=== PATIENT | female | born 1995 | race Asian ===

== ENCOUNTER 2017-04-17 17:05 | Emergency (ER) | payer OTHER ==
[~2017-04-17] VITALS: Ht 167.6 cm; Wt 53.8 kg
[2017-04-17 17:21] VITALS: TEMP 37; Ht 167.6 cm; Wt 53.8 kg
[2017-04-17 20:21] VITALS: O2SAT 100
[2017-04-17] MEDS ORDERED: SODIUM CHLORIDE 0.9% 1000ML 1,000 ML IV STA (20:24)
--- NOTE | 2017-04-17 20:29 | EMERGENCY ROOM VISIT NOTE ---
History Report prepared by Tona: Rodriguez Kaiser Under the Supervision of: Dr. Marlon Irwin D.O. First contact with patient: 20:17 Chief Complaint: PALPITATIONS Stated Complaint: HEART PALPITATIONS, SWOLLEN LYMPH NODES, NAUSEA Nursing Triage Summary: pt reports intermittent periods of palpatations today swollen lymph nodes right side of neck nausea abd pain History of Present Illness The patient is a 22 year old female who presents to the Emergency Room with complaints of intermittent heart palpitations today. She says that she feels that her heart is "going fast", and she has a "weird" feeling towards her sternum. The patient states that she has also had some intermittent tingling in her legs for "quite some time". She says that in high school, she had an episode left arm pain and chest pain, but did not get checked out for it. The patient says that she is not currently having the palpitations. She denies any urinary symptoms. The patient also notes no recent long travels or excessive caffeine use. She notes no surgical history or history of thyroid problems. Source of History: patient Onset: Today Position: other (heart) Symptom Intensity: going fast Quality: other (palpitations) Timing: intermittent Associated Symptoms: No urinary symptoms Note: Associated symptoms: Intermittent tingling in legs for quite some time. Review of Systems See HPI for pertinent positives & negatives. A total of 10 systems reviewed and were otherwise negative. Past Medical & Surgical Medical Problems: (1) MDD (major depressive disorder) Family History No pertinent family history Social History Smoking Status: Never Smoker Smokeless Tobacco Use: No Alcohol Use: occasionally Drug Use: none Marital Status: single Housing Status: lives with roommate Occupation Status: [employer] student Current/Historical Medications Scheduled Venlafaxine Hcl (Effexor Extended Rel), 150 MG PO HS Allergies Coded Allergies: Bacitracin (Verified Allergy, Intermediate, RASH, 04/17/17) Neomycin (Verified Allergy, Intermediate, RASH, 04/17/17) Polymyxin B (Verified Allergy, Intermediate, RASH, 04/17/17) Physical Exam Vital Signs Date Time Temp Pulse Resp B/P (MAP) Pulse Ox O2 Delivery O2 Flow Rate FiO2 04/17/17 22:38 80 118/92 98 04/17/17 20:28 78 04/17/17 20:21 100 Room Air 2/15/18 20:20 91 142/85 100 Room Air 04/17/17 17:21 37.0 92 20 128/93 99 Room Air Physical Exam GENERAL: Patient is awake, alert, and in no acute distress. Patient is resting comfortably and showing no signs of anxiety EYES: The conjunctivae are clear. The pupils are round and reactive. EARS, NOSE, MOUTH AND THROAT: The nose is without any evidence of any deformity. Mucous membranes are moist tongue is midline NECK: The neck is nontender and supple. RESPIRATORY: Normal respiratory effort is noted there is no evidence of wheezing rhonchi or rales CARDIOVASCULAR: Regular rate and rhythm noted there no murmurs rubs or gallops normal S1 normal S2 GASTROINTESTINAL: The abdomen is soft. Bowel sounds are present in all quadrants. Abdomen is nontender MUSCULOSKELETAL/EXTREMITIES: There is no evidence of gross deformity full range of motion is noted in the hips and shoulders SKIN: There is no obvious evidence of any rash. There are no petechiae, pallor or cyanosis noted. NEUROLOGIC: Patient is awake alert and oriented x3 strength is symmetric patellar reflexes are 2+ bilaterally Medical Decision & Procedures ER Provider Diagnostic Interpretation: X-ray results as stated below per interpretation by me and the radiologist. CHEST ONE VIEW PORTABLE HISTORY: EVALUATE RESPIRATORY DISTRESS.DYSPNEA COMPARISON: None. FINDINGS: The lungs are clear. Cardiac silhouette is normal in size. No pleural effusions. No pneumothorax. IMPRESSION: No acute process. Electronically signed by: Gómez Doan M.D. 04/17/2017 8:53 PM Dictated Date/Time: 04/17/2017 8:51 PM Laboratory Results 04/17/17 20:28 Red Blood Count 4.16, Mean Corpuscular Volume 87.3, Mean Corpuscular Hemoglobin 29.6, Mean Corpuscular Hemoglobin Concent 33.9, Mean Platelet Volume 10.6, Neutrophils (%) (Auto) 70.0, Lymphocytes (%) (Auto) 22.7, Monocytes (%) (Auto) 4.9, Eosinophils (%) (Auto) 1.9, Basophils (%) (Auto) 0.3, Neutrophils # (Auto) 8.70, Lymphocytes # (Auto) 2.82, Monocytes # (Auto) 0.61, Eosinophils # (Auto) 0.24, Basophils # (Auto) 0.04 2/15/18 20:28 Test 04/17/17 20:28 White Blood Count 12.43 K/uL (4.8-10.8) Red Blood Count 4.16 M/uL (4.2-5.4) Hemoglobin 12.3 g/dL (12.0-16.0) Hematocrit 36.3 % (37-47) Mean Corpuscular Volume 87.3 fL (80-100) Mean Corpuscular Hemoglobin 29.6 pg (25-34) Mean Corpuscular Hemoglobin Concent 33.9 g/dl (32-36) Platelet Count 210 K/uL (130-400) Mean Platelet Volume 10.6 fL (7.4-10.4) Neutrophils (%) (Auto) 70.0 % Lymphocytes (%) (Auto) 22.7 % Monocytes (%) (Auto) 4.9 % Eosinophils (%) (Auto) 1.9 % Basophils (%) (Auto) 0.3 % Neutrophils # (Auto) 8.70 K/uL (1.4-6.5) Lymphocytes # (Auto) 2.82 K/uL (1.2-3.4) Monocytes # (Auto) 0.61 K/uL (0.11-0.59) Eosinophils # (Auto) 0.24 K/uL (0-0.5) Basophils # (Auto) 0.04 K/uL (0-0.2) RDW Standard Deviation 45.6 fL (36.4-46.3) RDW Coefficient of Variation 14.2 % (11.5-14.5) Immature Granulocyte % (Auto) 0.2 % Immature Granulocyte # (Auto) 0.02 K/uL (0.00-0.02) Anion Gap 6.0 mmol/L (3-11) Est Creatinine Clear Calc Drug Dose 111.9 ml/min Estimated GFR () 144.6 Estimated GFR (Non- 124.8 BUN/Creatinine Ratio 20.5 (10-20) Calcium Level 8.5 mg/dl (8.5-10.1) Magnesium Level 2.3 mg/dl (1.8-2.4) Total Bilirubin 0.3 mg/dl (0.2-1) Aspartate Amino Transf (AST/SGOT) 9 U/L (15-37) Alanine Aminotransferase (ALT/SGPT) 18 U/L (12-78) Alkaline Phosphatase 52 U/L (45-117) Troponin I < 0.015 ng/ml (0-0.045) Total Protein 7.3 gm/dl (6.4-8.2) Albumin 3.9 gm/dl (3.4-5.0) Globulin 3.4 gm/dl (2.5-4.0) Albumin/Globulin Ratio 1.1 (0.9-2) Thyroid Stimulating Hormone (TSH) 2.510 uIu/ml (0.300-4.500) Free Thyroxine 0.81 ng/dl (0.80-1.60) Human Chorionic Gonadotropin, Qual NEG (NEG) Laboratory results per my review. Medications Administered Medications (Trade) Dose Ordered Sig/Gracia Route Start Time Stop Time Status Last Admin Dose Admin Sodium Chloride 1,000 ml @ 999 mls/hr Q1H1M STAT IV 04/17/17 20:24 04/17/17 21:24 DC 04/17/17 20:24 999 MLS/HR ECG Per My Interpretation Indication: palpitations Rate (beats per minute): 84 Rhythm: normal sinus Findings: no ectopy, other (no acute ST segment abnormalities) Comparison ECG Date: no prior available ED Course 2019: The patient was evaluated in room B10. A complete history and physical examination were performed. 2023: Ordered NSS 1000 ml @ 999 mls/hr IV. 2206: Upon reevaluation, the patient is resting. I discussed the results and treatment plan with her. She verbalized agreement of the treatment plan. She was discharged home. Medical Decision Differential diagnosis: Etiologies such as premature contractions, electrolyte abnormality, cardiac dysrhythmia, thyroid dysfunction, pulmonary embolism, infection, gastrointestinal, as well as others were entertained. Nursing notes reviewed. The patient is a 22-year-old female who presented to the emergency department for an evaluation of palpitations. The patient was not found to have any dysrhythmia while in the emergency department. She was treated with IV fluids in the emergency department. I discussed patient's laboratory and radiographic studies with her. She was encouraged to continue all medications as prescribed and follow-up with [facility]. Also recommended that she avoid any strenuous activity and return to the emergency department immediately if symptoms change worsening the need arises. I recommended that she discussed possibility that she may require further study such as an echocardiogram or a Holter monitor to further evaluate cause of her symptoms. Medication Reconcilliation Current Medication List: was personally reviewed by me Blood Pressure Screening Patient's blood pressure: Normal blood pressure Impression Primary Impression: Palpitations Scribe Attestation The scribe's documentation has been prepared under my direction and personally reviewed by me in its entirety. I confirm that the note above accurately reflects all work, treatment, procedures, and medical decision making performed by me. Departure Information Dispostion Home / Self-Care Referrals No Doctor, Assigned (PCP) [facility] Patient Instructions Heart Palpitations, My [facility] Additional Instructions Rest and avoid any strenuous activity. Drink plenty clear liquids. Continue all medications as prescribed. Avoid any caffeinated beverages. Call [facility] in the morning to schedule a follow-up appointment. He may require further studies such as an echocardiogram and Holter monitor to further evaluate the cause of your palpitations. Return to the emergency department immediately if symptoms change or worsen the need arises.
[2017-04-17 20:46] LABS: BASO % 0.3 %; BASO ABS # 0.04 K/uL (0-0.2); EOS % 1.9 %; EOS ABS # 0.24 K/uL (0-0.5); HEMATOCRIT 36.3 % (37-47); HEMOGLOBIN 12.3 g/dL (12.0-16.0); IG# 0.02 K/uL (0.00-0.02); LYMPH % 22.7 %; LYMPH ABS # 2.82 K/uL (1.2-3.4); MEAN CELL VOLUME 87.3 fL (80-100); MEAN CORPUSCULAR HEMOGLOBIN 29.6 pg (25-34); MEAN CORPUSCULAR HGB CONC 33.9 g/dl (32-36); MEAN PLATELET VOLUME 10.6 fL (7.4-10.4); MONO % 4.9 %; MONO ABS # 0.61 K/uL (0.11-0.59); PLATELET COUNT 210 K/uL (130-400); RED CELL DISTRIBUTION WIDTH CV 14.2 % (11.5-14.5); RED CELL DISTRIBUTION WIDTH SD 45.6 fL (36.4-46.3); WHITE BLOOD COUNT 12.43 K/uL (4.8-10.8)
--- NOTE | 2017-04-17 20:54 | DIAGNOSTIC IMAGING REPORT ---
CHEST ONE VIEW PORTABLE HISTORY: EVALUATE RESPIRATORY DISTRESS.DYSPNEA COMPARISON: None. FINDINGS: The lungs are clear. Cardiac silhouette is normal in size. No pleural effusions. No pneumothorax. IMPRESSION: No acute process. Electronically signed by: Gómez Doan M.D. 04/17/2017 8:53 PM Dictated Date/Time: 04/17/2017 8:51 PM
[2017-04-17 21:06] LABS: ALBUMIN 3.9 gm/dl (3.4-5.0); ALT/SGPT 18 U/L (12-78); AST/SGOT 9 U/L (15-37); BLOOD UREA NITROGEN 14 mg/dl (7-18); CALCIUM 8.5 mg/dl (8.5-10.1); CARBON DIOXIDE 27 mmol/L (21-32); CREATININE 0.67 mg/dl (0.60-1.20); GLUCOSE 90 mg/dl (70-99); POTASSIUM 3.5 mmol/L (3.5-5.1); SODIUM 136 mmol/L (136-145)
[2017-04-17 21:17] LABS: ALKALINE PHOSPHATASE 52 U/L (45-117); TOTAL PROTEIN 7.3 gm/dl (6.4-8.2)
[2017-04-17] MEDS ORDERED: VENL150C56 PO (21:21)
[2017-04-17 22:38] VITALS: BP 118/92; PULSE 80; O2SAT 98
== END 2017-04-17 22:39 | disposition home or self-care (01) ==
LOC: C.EDB 17:07
DX: R00.2 Palpitations (principal); F32.9 Major depressive disorder, single episode, unspecified; Z79.899 Other long term (current) drug therapy; Z88.8 Allergy status to other drugs, medicaments and biological substances

== ENCOUNTER 2017-05-18 12:55 | Emergency (ER) | payer OTHER ==
[~2017-05-18] VITALS: Ht 167.6 cm; Wt 52.4 kg
[~2017-05-18 12:55] MED LIST: VENL150C56 PO
[2017-05-18 12:58] VITALS: Ht 167.6 cm; Wt 52.4 kg
[2017-05-18] MEDS ORDERED: SODIUM CHLORIDE 0.9% 1000ML 2,000 ML IV STA (13:07)
--- NOTE | 2017-05-18 13:13 | EMERGENCY ROOM VISIT NOTE ---
History Report prepared by Tona: Adam Reid Under the Supervision of: Dr. Ozzy Ruth M.D. First contact with patient: 13:01 Chief Complaint: GI ASSESSMENT Stated Complaint: BLACK STOOL,NAUSEA,VOMITING,BLOODY STOOL,CONSTIPAT Nursing Triage Summary: pt reports black stool started a few days ago yesterday was bright red stools. has n./v and mid abd pain History of Present Illness The patient is a 22 year old female who presents to the Emergency Room with complaints of intermittent melena and hematochezia that began 2 days ago. Patient adds that she vomited in her mouth this morning. She denies looking at the vomit. Patient adds that she has shortness of breath and weakness. Patient denies a family history of similar symptoms. Patient states that she did not call her doctor about the symptoms because their office is closed. She denies fevers, chills, diarrhea, coughs, and congestion. She adds that she has a chronic history of intermittent diarrhea. Patient adds that she takes Venlafaxine for her PTSD. Patient denies taking blood thinners, using drugs, smoking, and drinking alcohol. Patient denies using ibuprofen. Source of History: patient Onset: 2 days ago Position: other (Rectal) Timing: intermittent Modifying Factors (Relieving): other (None) Associated Symptoms: + vomiting, No fevers, No chills, No cough, No diarrhea Note: She denies congestion. Review of Systems See HPI for pertinent positives and negatives. A total of ten systems were reviewed and were otherwise negative. Past Medical & Surgical Medical Problems: (1) MDD (major depressive disorder) Family History No pertinent family history Social History Smoking Status: Never Smoker Alcohol Use: occasionally Drug Use: none Marital Status: single Housing Status: lives with roommate Occupation Status: [employer] student Current/Historical Medications Scheduled Omeprazole (Prilosec), 40 MG PO BID Venlafaxine Hcl (Effexor Extended Rel), 150 MG PO HS Allergies Coded Allergies: Bacitracin (Verified Allergy, Intermediate, RASH, 05/18/17) Neomycin (Verified Allergy, Intermediate, RASH, 05/18/17) Polymyxin B (Verified Allergy, Intermediate, RASH, 05/18/17) Physical Exam Vital Signs Date Time Temp Pulse Resp B/P (MAP) Pulse Ox O2 Delivery O2 Flow Rate FiO2 05/18/17 15:42 36.8 72 18 110/77 100 05/18/17 15:40 72 18 110/77 100 Room Air 05/18/17 14:45 78 18 112/80 100 Room Air 05/18/17 12:58 36.8 114 18 126/84 96 Room Air Physical Exam GENERAL: Awake, alert, well-appearing, in no distress HENT: Normocephalic, atraumatic. Oropharynx unremarkable. EYES: Normal conjunctiva. Sclera non-icteric. NECK: Supple. No nuchal rigidity. FROM. No JVD. RESPIRATORY: Clear to auscultation. CARDIAC: Regular rate, normal rhythm. Extremities warm and well perfused. Pulses equal. ABDOMEN: Soft, non-distended. No tenderness to palpation. No rebound or guarding. No masses. RECTAL: Scant brown stool. No melena or blood. Guaiac negative. MUSCULOSKELETAL: Chest examination reveals no tenderness. The back is symmetrical on inspection without obvious abnormality. There is no CVA tenderness to palpation. No joint edema. LOWER EXTREMITIES: Calves are equal size bilaterally and non-tender. No edema. No discoloration. NEURO: Normal sensorium. No sensory or motor deficits noted. SKIN: No rash or jaundice noted. Medical Decision & Procedures Laboratory Results 05/18/17 13:15 Red Blood Count 4.66, Mean Corpuscular Volume 87.1, Mean Corpuscular Hemoglobin 29.2, Mean Corpuscular Hemoglobin Concent 33.5, Mean Platelet Volume 11.1, Neutrophils (%) (Auto) 51.8, Lymphocytes (%) (Auto) 38.6, Monocytes (%) (Auto) 5.6, Eosinophils (%) (Auto) 3.0, Basophils (%) (Auto) 1.0, Neutrophils # (Auto) 2.61, Lymphocytes # (Auto) 1.94, Monocytes # (Auto) 0.28, Eosinophils # (Auto) 0.15, Basophils # (Auto) 0.05 05/18/17 13:15 Test 05/18/17 13:15 05/18/17 13:25 White Blood Count 5.03 K/uL (4.8-10.8) Red Blood Count 4.66 M/uL (4.2-5.4) Hemoglobin 13.6 g/dL (12.0-16.0) Hematocrit 40.6 % (37-47) Mean Corpuscular Volume 87.1 fL (80-100) Mean Corpuscular Hemoglobin 29.2 pg (25-34) Mean Corpuscular Hemoglobin Concent 33.5 g/dl (32-36) Platelet Count 227 K/uL (130-400) Mean Platelet Volume 11.1 fL (7.4-10.4) Neutrophils (%) (Auto) 51.8 % Lymphocytes (%) (Auto) 38.6 % Monocytes (%) (Auto) 5.6 % Eosinophils (%) (Auto) 3.0 % Basophils (%) (Auto) 1.0 % Neutrophils # (Auto) 2.61 K/uL (1.4-6.5) Lymphocytes # (Auto) 1.94 K/uL (1.2-3.4) Monocytes # (Auto) 0.28 K/uL (0.11-0.59) Eosinophils # (Auto) 0.15 K/uL (0-0.5) Basophils # (Auto) 0.05 K/uL (0-0.2) RDW Standard Deviation 44.4 fL (36.4-46.3) RDW Coefficient of Variation 14.0 % (11.5-14.5) Immature Granulocyte % (Auto) 0.0 % Immature Granulocyte # (Auto) 0.00 K/uL (0.00-0.02) Erythrocyte Sedimentation Rate 8 mm/hr (0-21) Prothrombin Time 10.7 SECONDS (9.0-12.0) Prothromb Time International Ratio 1.0 (0.9-1.1) Anion Gap 8.0 mmol/L (3-11) Est Creatinine Clear Calc Drug Dose 102.8 ml/min Estimated GFR () 140.1 Estimated GFR (Non- 120.9 BUN/Creatinine Ratio 15.6 (10-20) Calcium Level 8.9 mg/dl (8.5-10.1) Total Bilirubin 0.4 mg/dl (0.2-1) Direct Bilirubin 0.1 mg/dl (0-0.2) Aspartate Amino Transf (AST/SGOT) 12 U/L (15-37) Alanine Aminotransferase (ALT/SGPT) 18 U/L (12-78) Alkaline Phosphatase 59 U/L (45-117) C-Reactive Protein < 0.29 mg/dl (0-0.29) Total Protein 8.1 gm/dl (6.4-8.2) Albumin 4.5 gm/dl (3.4-5.0) Lipase 145 U/L (73-393) Urine Color YELLOW Urine Appearance CLEAR (CLEAR) Urine pH 5.5 (4.5-7.5) Urine Specific [place] 1.025 (1.000-1.030) Urine Protein NEG (NEG) Urine Glucose (UA) NEG (NEG) Urine Ketones NEG (NEG) Urine Occult Blood NEG (NEG) Urine Nitrite NEG (NEG) Urine Bilirubin NEG (NEG) Urine Urobilinogen NEG (NEG) Urine Leukocyte Esterase NEG (NEG) Laboratory results reviewed by me Medications Administered Medications (Trade) Dose Ordered Sig/Gracia Route Start Time Stop Time Status Last Admin Dose Admin Sodium Chloride 2,000 ml @ 999 mls/hr Q2H1M STAT IV 05/18/17 13:07 05/18/17 15:07 DC 05/18/17 13:21 999 MLS/HR Pantoprazole Sodium (Protonix Tab) 40 mg NOW STAT PO 05/18/17 15:20 05/18/17 15:22 DC 05/18/17 15:36 40 MG ECG Per My Interpretation Indication: other (Fatigue) Rate (beats per minute): 96 Rhythm: normal sinus Findings: other (Normal axis) Comparison ECG Date: 04/17/2017 Change: Precordial t waves similar to prior, no ischemia. ED Course 1253: The patient was evaluated in room C6. A complete history and physical exam was performed. 1523: I reevaluated the patient. Discussed results and discharge instructions. She verbalized understanding and agreement. The patient is ready for discharge. Medical Decision I reviewed the patient's past medical history, medications, and the nursing notes as described above. Differential diagnosis: Etiologies such as diverticulosis, AVM, coagulopathy, colitis, inflammatory bowel disease, malignancy, Amy-Maria tear, esophagitis, peptic ulcer disease , variceal bleed, gastritis, epistaxis, fissure, hemorrhoids, as well as others were entertained. The patient is a 22-year-old woman who presents emergency department with complaint of red blood and melena per rectum per hpi. On arrival the patient is well-appearing, no acute distress, afebrile stable vital signs. Her exam is unremarkable with no abdominal tenderness. Rectal exam demonstrates scant brown stool, no melena, no bleeding, guaiac negative. Labs unremarkable including WBC and H&H within normal limits. EKG unchanged from prior. Given reassuring exam and workup there is no indication for further evaluation at this time. Symptoms likely related to gastritis. Patient will follow up with her PCP. Findings and plan for follow-up reviewed with patient. Patient agreeable and d/c'd per discharge instructions. Medication Reconcilliation Current Medication List: was personally reviewed by me Blood Pressure Screening Patient's blood pressure: Normal blood pressure Blood pressure disposition: Did not require urgent referral Impression Primary Impression: Gastritis Scribe Attestation The scribe's documentation has been prepared under my direction and personally reviewed by me in its entirety. I confirm that the note above accurately reflects all work, treatment, procedures, and medical decision making performed by me. Departure Information Dispostion Home / Self-Care Prescriptions Omeprazole (PRILOSEC) 40 Mg Cap 40 MG PO BID for 14 Days, #28 CAP Prov: Ozzy Ruth M.D. 05/18/17 Referrals [facility] (PCP) Forms HOME CARE DOCUMENTATION FORM, IMPORTANT VISIT INFORMATION Patient Instructions ED Bleed UGI Stable, ED Gastritis, My [facility] Additional Instructions Please follow up with your primary care physician in the next 1-3 days for re- evaluation. The cause of your symptoms may be due to a gastritis. Otherwise, your exam, EKG, and lab results did not show signs of an emergent condition at this time. Omeprazole as directed for acid reduction. Drink plenty of fluids to ensure hydration. Return to the emergency department for worsening symptoms as described in the accompanying instructions.
[2017-05-18 13:43] LABS: ALBUMIN 4.5 gm/dl (3.4-5.0); ALT/SGPT 18 U/L (12-78); AST/SGOT 12 U/L (15-37); BASO ABS # 0.05 K/uL (0-0.2); BLOOD UREA NITROGEN 11 mg/dl (7-18); CALCIUM 8.9 mg/dl (8.5-10.1); CARBON DIOXIDE 27 mmol/L (21-32); CREATININE 0.71 mg/dl (0.60-1.20); EOS ABS # 0.15 K/uL (0-0.5); GLUCOSE 93 mg/dl (70-99); HEMATOCRIT 40.6 % (37-47); HEMOGLOBIN 13.6 g/dL (12.0-16.0); LIPASE 145 U/L (73-393); LYMPH % 38.6 %; LYMPH ABS # 1.94 K/uL (1.2-3.4); MEAN CELL VOLUME 87.1 fL (80-100); MEAN CORPUSCULAR HEMOGLOBIN 29.2 pg (25-34); MEAN CORPUSCULAR HGB CONC 33.5 g/dl (32-36); MEAN PLATELET VOLUME 11.1 fL (7.4-10.4); MONO % 5.6 %; MONO ABS # 0.28 K/uL (0.11-0.59); NEUT % 51.8 %; NEUT ABS # 2.61 K/uL (1.4-6.5); PLATELET COUNT 227 K/uL (130-400); POTASSIUM 3.4 mmol/L (3.5-5.1); RED CELL DISTRIBUTION WIDTH SD 44.4 fL (36.4-46.3); SODIUM 137 mmol/L (136-145); WHITE BLOOD COUNT 5.03 K/uL (4.8-10.8)
[2017-05-18 13:46] LABS: ALKALINE PHOSPHATASE 59 U/L (45-117); TOTAL PROTEIN 8.1 gm/dl (6.4-8.2)
[2017-05-18] MEDS ORDERED: OMEP40CA41 PO (15:20)
[2017-05-18] MEDS ORDERED: PANTOprazole SOD 40 MG TAB PO STA (15:20)
[2017-05-18 15:42] VITALS: BP 110/77; PULSE 72; TEMP 36.8; O2SAT 100
== END 2017-05-18 15:43 | disposition home or self-care (01) ==
LOC: C.EDB 12:56 → C.EDC 15:43
DX: K29.70 Gastritis, unspecified, without bleeding (principal); R06.02 Shortness of breath; R53.1 Weakness; F32.9 Major depressive disorder, single episode, unspecified; F43.10 Post-traumatic stress disorder, unspecified; Z88.1 Allergy status to other antibiotic agents

== ENCOUNTER 2019-06-02 18:17 | Inpatient (IN) ==
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
[2019-06-02 19:49] LABS: Amphetamines+Metham, Urine Neg (Neg); Barbiturates, Urine Neg (Neg); Benzodiazepine, Urine Neg (Neg); Cocaine, Urine Neg (Neg); MDMA (Ecstacy), Urine Neg (Neg); Methadone, Urine Neg (Neg); Opiate, Urine Neg (Neg); Phencyclidine, Urine Neg (Neg)
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
[2019-06-02 23:36] LABS: Basophils # (auto) 0.05 K/uL (0-0.2); Basophils % (auto) 0.6 %; Eosinophils # (auto) 0.16 K/uL (0-0.5); Eosinophils % (auto) 1.9 %; Hematocrit (blood only) 35.8 % (37-47); Hemoglobin 11.2 g/dL (12.0-16.0); Immature Granulocytes # (auto) 0.01 K/uL (0.00-0.02); Immature Granulocytes % (auto) 0.1 %; Lymphocytes # (auto) 2.81 K/uL (1.2-3.4); Lymphocytes % (auto) 33.9 %; Mean Corpuscular Hgb Conc 31.3 g/dL (32-36); Mean Corpuscular Volume 76.7 fL (80-100); Mean Platelet Volume 10.5 fL (7.4-10.4); Monocytes # (auto) 0.52 K/uL (0.11-0.59); Monocytes % (auto) 6.3 %; Neutrophils # (auto) 4.73 K/uL (1.4-6.5); Neutrophils % (auto) 57.2 %; Platelet Count 431 K/uL (130-400); RDW Coefficient of Variation 16.3 % (11.5-14.5); RDW Standard Deviation 45.4 fL (36.4-46.3); Red Blood Count 4.67 M/uL (4.2-5.4); White Blood Count 8.28 K/uL (4.8-10.8)
[2019-06-02 23:53] LABS: Albumin Level 4.3 gm/dl (3.4-5.0); BUN Creatinine Ratio 20.2 (10-20); Calcium 9.2 mg/dl (8.5-10.1); Creatinine Clr Calc Pharmacy 85.2 ml/min; Est GFR (African American) 109.6; Est GFR (Non-African American) 94.6; Potassium 4.3 mmol/L (3.5-5.1)
[2019-06-03 00:04] LABS: Bilirubin,Total 0.3 mg/dl (0.2-1); Globulin 4.2 gm/dl (2.5-4.0); Thyroid Stimulating Hormone 1.29 uIu/ml (0.300-4.500); Total Protein 8.5 gm/dl (6.4-8.2)
[2019-06-03 00:06] LABS: Acetaminophen < 2 ug/ml (10-30); Salicylate < 1.7 mg/dl (2.8-20)
[2019-06-03 00:27] LABS: Appearance Urine Turbid (Clear); Bilirubin Urine Negative (Negative); Blood Urine 1+ (Negative); Color Urine Yellow; Glucose Urine UA Negative (Negative); Ketones Urine Negative (Negative); Leukocyte Esterase Urine Negative (Negative); Nitrite Urine Negative (Negative); Protein Urine Negative (Negative); Specific Gravity Urine >= 1.030 (1.000-1.030); Urobilinogen Urine Negative (Negative)
[2019-06-03 00:31] LABS: Amorphous Sediment Urine Present (None Prsent); Bacteria Urine Negative (Negative); Epithelial Cell Urine 0-5 /lpf (0-5); Mucus Urine Present (None Prsent); RBC Urine 0-4 /hpf (0-4); WBC Urine 0-5 /hpf (0-5)
[2019-06-03] MEDS ORDERED: ACETAMINOPHEN 325 MG TAB PO PRN (03:09)
[2019-06-03] MEDS ORDERED: SODIUM CHLORIDE 0.65% NA SOLN 45 ML (OCEAN) PRN (03:09)
[2019-06-03] MEDS ORDERED: MAGNESIUM HYDROXIDE SUSP 30 ML UDC PO PRN (03:09)
[2019-06-03] MEDS ORDERED: ALUMINUM/MAGNESIUM SUSP 30 ML UDC PO PRN (03:09)
[2019-06-03] MEDS ORDERED: BISMUTH SUBSALICYLATE PER ML OMNICELL CHARGE PO PRN (03:09)
--- NOTE | 2019-06-03 06:08 | Emergency Department Note ---
ED Visit Note Patient signed out to me at change of shift awaiting final disposition after evaluation by psychiatric housing case manager. Patient admitted to [facility]. the 22 03/ inpatient admission form signed by myself. Patient's diagnoses depression and suicidal ideation. . : MDD (major depressive disorder) Qualifiers: Major depression recurrence: recurrent Active/Remission status: currently active Major depression episode severity: moderate Qualified Code(s): F33.1 - Major depressive disorder, recurrent, moderate
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
[2019-06-03] MEDS: VENLAFAXINE HCL XR 150 MG CAPXR PO SCH (08:25)
[2019-06-04] MEDS: VENLAFAXINE HCL XR 150 MG CAPXR PO SCH (10:49)
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
[2019-06-05] MEDS: BuPROPion XL 150 MG TABCR PO SCH (12:06)
[2019-06-05] MEDS: VENLAFAXINE HCL XR 150 MG CAPXR PO SCH (12:20)
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
[2019-06-06] MEDS: VENLAFAXINE HCL XR 150 MG CAPXR PO SCH (08:46)
[2019-06-06] MEDS: BuPROPion XL 150 MG TABCR PO SCH (08:47)
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
[2019-06-07] MEDS: BuPROPion XL 150 MG TABCR PO SCH (08:16)
[2019-06-07] MEDS: VENLAFAXINE HCL XR 150 MG CAPXR PO SCH (08:16)
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
[2019-06-08] MEDS: BuPROPion XL 150 MG TABCR PO SCH (08:03)
[2019-06-08] MEDS: VENLAFAXINE HCL XR 150 MG CAPXR PO SCH (08:03)
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
== END 2019-06-08 10:03 | disposition home or self-care (01) | DRG 885 ==
LOC: ED 18:17 → 3S 06-03 01:45